=== PATIENT | male | born 1995 | race African-American/Black ===

== ENCOUNTER 2024-05-20 16:10 | Emergency (ER) | payer SELFPAY ==
[~2024-05-20] VITALS: Ht 172.7 cm; Wt 92.0 kg
[2024-05-20 16:13] VITALS: O2SAT 100
[2024-05-20 16:41] VITALS: BP 120/83; PULSE 101; RESP 14; TEMP 98.2; O2SAT 96
== END 2024-05-20 18:58 | disposition left against medical advice (07) ==
LOC: ER 16:10
DX: A64 Unspecified sexually transmitted disease (principal); Z53.21 Procedure and treatment not carried out due to patient leaving prior to being seen by health care provider